=== PATIENT | female | born 1985 | race Caucasian/White ===

== ENCOUNTER 2020-03-15 06:49 | Day surgery (SDC) | payer MEDICAID ==
[2020-03-11 10:29] LABS: BASOPHILS % (AUTO) 0.7 % (0-1); EOSINOPHILS # (AUTO) 0.4 X10'3 (0-0.9); EOSINOPHILS % (AUTO) 5.6 % (0-6); LYMPHOCYTES # (AUTO) 2.1 X10'3 (1.1-4.8); LYMPHOCYTES % (AUTO) 31.1 % (21-51); MEAN CORPUSCULAR HEMOGLOBIN 30.9 PG (27.0-31.0); MEAN CORPUSCULAR HGB CONC 33.9 g/dL (33.0-36.5); MEAN CORPUSCULAR VOLUME 91.1 FL (78-98); MEAN PLATELET VOLUME 8.7 FL (7.4-10.4); MONOCYTES # (AUTO) 0.5 X10'3 (0-0.9); MONOCYTES % (AUTO) 7.4 % (2-12); NEUTROPHILS # (AUTO) 3.7 X10'3 (1.8-7.7); NEUTROPHILS % (AUTO) 55.2 % (42-75); PRE OP HEMATOCRIT 40.7 % (35.0-45.0); PRE OP HEMOGLOBIN 13.8 g/dL (12.0-16.0); PRE OP PLATELET COUNT 273 X10'3 (140-440); RED BLOOD COUNT 4.47 X10'6 (4.20-5.60); RED CELL DISTRIBUTION WIDTH 14.1 % (11.5-14.5)
[2020-03-11 10:31] LABS: CLARITY,URINE CLEAR (Clear); COLOR,URINE YELLOW (Yellow); GLUCOSE, URINE NEGATIVE (Neg); KETONES,URINE NEGATIVE (Neg); LEUKOCYTE ESTERASE ,URINE TRACE (Neg); NITRITES, URINE NEGATIVE (Neg); OCCULT BLOOD,URINE NEGATIVE (Neg); PH,URINE 7.5 (4.8-8.0); PROTEIN,URINE NEGATIVE (Neg); UROBILINOGEN,URINE 0.2 E.U/dL (0.2-1.0)
[2020-03-11 10:35] LABS: UA COLLECTION TYPE CLN CATCH MIDSTREAM
[2020-03-11 10:39] LABS: BACTERIA,URINE NONE SEEN /HPF (Neg); MUCUS STRANDS NONE SEEN /LPF (Neg); RBC,URINE NONE SEEN /HPF (0-2); SQUAMOUS EPITHELIAL CELL,UR FEW /LPF (FEW); WBC,URINE 0-4 /HPF (0-4)
[2020-03-11 10:40] LABS: ALBUMIN 3.9 G/DL (3.4-5.0); ALBUMIN/GLOBULIN RATIO 1.1 (1.1-1.5); ALKALINE PHOSPHATASE 69 IU/L (46-116); BLOOD UREA NITROGEN 17 MG/DL (7-18); BUN/CREATININE RATIO 22.7 (6.6-38.0); CALCIUM 9.3 MG/DL (8.5-10.1); CHLORIDE 105 MMOL/L (99-107); CREATININE 0.75 MG/DL (0.40-0.90); PRE OP ALT 16 U/L (30-65); PRE OP ANION GAP 6 (8-16); PRE OP AST 20 U/L (10-37); PRE OP BILIRUB, TOTAL 0.3 MG/DL (0.0-1.0); PRE OP GLUCOSE 93 MG/DL (70-104); PRE OP POTASSIUM 4.2 MMOL/L (3.4-5.1); PRE OP SODIUM 140 MMOL/L (135-145); TOTAL CARBON DIOXIDE 29.5 MMOL/L (24-32); TOTAL PROTEIN 7.5 G/DL (6.4-8.2); eGFR 90 ML/MIN
[2020-03-11 10:55] LABS: HCG SERUM QL NEGATIVE
[~2020-03-15] VITALS: Ht 162.6 cm; Wt 86.2 kg
[2020-03-15] VITALS (9 sets, daily range): BP systolic 110–123; BP diastolic 64–80
[~2020-03-15 06:49] MED LIST: NO HOME MEDS; ceFOXitin 2GM-NS 100mL ADDvant 100 ML IV ONE; famotidine 20mg tablet PO ONE; ringers solution, lacted 1,000 ML IV SCH
[2020-03-15] MEDS ORDERED: ringers solution, lacted 1,000 ML IV SCH (07:09)
[2020-03-15] MEDS ORDERED: hydrALAZINE 20mg/ml inj. IV PRN (07:10)
[2020-03-15] MEDS ORDERED: fentaNYL/PF 50MCG/1 ML 2ML syringe IV PRN ×2 (07:10)
[2020-03-15] MEDS ORDERED: morphine 2 MG/ML inj. syringe IV PRN (07:10)
[2020-03-15] MEDS ORDERED: morphine 4 MG/ML inj SYRINge IV PRN (07:10)
[2020-03-15] MEDS ORDERED: ondansetron/PF 4mg/2ml inj IV PRN (07:10)
[2020-03-15] MEDS ORDERED: labetalol 20mg/4ml (5mg/ml) syringe IV PRN (07:10)
[2020-03-15] MEDS ORDERED: rocuronium 10mg/ml inj IV ONE (07:36)
[2020-03-15] MEDS ORDERED: propofol inj 20 ML IV ONE (07:37)
[2020-03-15] MEDS ORDERED: LIDOcaine 2% (20mg/ml) 5ml vial ONE (07:37)
[2020-03-15] MEDS ORDERED: ondansetron/PF 4mg/2ml inj ONE (07:48)
[2020-03-15] MEDS ORDERED: glycopyrrolate 0.2mg/ml inj ONE (07:48)
[2020-03-15] MEDS ORDERED: neostigmine methylsulfate 1 MG/ML 10ml vial ONE (07:48)
[2020-03-15] MEDS ORDERED: midazolam 2 mg/2 ml injection ONE (07:49)
[2020-03-15] MEDS ORDERED: fentaNYL/PF 50MCG/1 ML 2ML syringe ONE (07:49)
[2020-03-15] MEDS ORDERED: BUPIVAcaine/PF 2.5 mg/ml (0.25%) 30ml vial ONE (07:53)
[2020-03-15] MEDS ORDERED: sevoflurane 250ml liquid IH ONE (07:58)
[2020-03-15] MEDS ORDERED: dexamethasone sod phosphate 10mg/ml inj ONE (07:58)
[2020-03-15] MEDS ORDERED: meperidine/PF 50mg/ml syringe ONE (08:44)
--- NOTE | 2020-03-15 09:00 | NUR ---
Received from OR via [facility], accompanied by Anesthesiologist DR PEREYRA and report given by Anesthesiologist. PT DROWSY, DENIES PAIN, ABDOMEN W/4 LAP SITES W/DERMABOND GLUE CDI, MARLIN PAD IN PLACE. Addendum: 03/15/20 at 0918 by Maura Suh RN Amended: Links added.
--- NOTE | 2020-03-15 11:10 | NUR ---
D/C INSTRUCTIONS GIVEN AND GONE OVER W/PT WHO VERBALIZED UNDERSTANDING, PT D/CD TO HOME VIA W/C TO PRIVATE VEHICLE W/O INCIDENT. Addendum: 03/15/20 at 1141 by Maura Suh RN Amended: Links added.
== END 2020-03-15 11:10 | disposition home or self-care (01) ==
LOC: PAS 06:49
PROVIDERS: ATTEND Obstetrics & Gynecology
DX: Z30.2 Encounter for sterilization (principal); Z11.59 Encounter for screening for other viral diseases
CPT/HCPCS: 36415; 58661; 80053; 81001; 84703; 85025; 85610; 85730; 86885; 86900; 86901; 87088; 87635; J0694; J1100; J2001; J2175; J2250; J2405; J2704; J2710; J3010; J3490; J7120; A4618; A7000